=== PATIENT | female | born 1985 | race Caucasian/White ===

== ENCOUNTER 2017-01-17 15:48 | Emergency (ER) | payer OTHER | END 2017-01-17 16:07 | disposition home or self-care (01) | LOC: ER 15:48 | DX: J20.9 Acute bronchitis, unspecified (principal); R05 Cough; F17.210 Nicotine dependence, cigarettes, uncomplicated | CPT/HCPCS: 99282 ==

== ENCOUNTER 2017-02-14 19:59 | Emergency (ER) | payer OTHER | END 2017-02-14 20:44 | disposition home or self-care (01) | LOC: ER 19:59 | DX: M54.5 Low back pain (principal) ==